=== PATIENT | male | born 1955 | race Two or more races ===

== ENCOUNTER 2023-02-24 10:45 | Inpatient (IN) | payer OTHER ==
[~2023-02-24] VITALS: Ht 152.4 cm; Wt 81.6 kg
[2023-03-01 19:11] LABS: HEMATOCRIT 37.4 % (39.0-48.0); HEMOGLOBIN 11.8 g/dL (13-16.00); MEAN CORPUSCULAR HGB CONC 31.6 g/dl (32.0-36.0); PLATELET COUNT 283 K/uL (150-450); RED BLOOD COUNT 5.37 M/uL (4.00-6.00)
[2023-03-01 19:14] LABS: MEAN CELL VOLUME 69.6 fL (80.0-100.00); RED CELL DISTRIBUTION WIDTH 34.2 % (11.5-14.5)
[2023-03-01 19:30] LABS: ALBUMIN 3.4 gm/dL (3.4-5.0); CALCIUM 8.9 mg/dL (8.5-10.1); CREATININE SERUM 1.11 mg/dL (0.70-1.30); GFR 65.88; MAGNESIUM 1.7 mg/dL (1.8-2.4); POTASSIUM 4.1 mEq/L (3.5-5.1)
[2023-03-02 07:47] LABS: HEMATOCRIT 37.7 % (39.0-48.0); HEMOGLOBIN 11.9 g/dL (13-16.00); MEAN CORPUSCULAR HEMOGLOBIN 22.1 pg (27.00-32.0); MEAN CORPUSCULAR HGB CONC 31.7 g/dl (32.0-36.0); PLATELET COUNT 310 K/uL (150-450); RED BLOOD COUNT 5.38 M/uL (4.00-6.00)
[2023-03-02 07:52] LABS: MEAN CELL VOLUME 69.9 fL (80.0-100.00); RED CELL DISTRIBUTION WIDTH 34.1 % (11.5-14.5)
[2023-03-02 08:14] LABS: ALBUMIN 3.3 gm/dL (3.4-5.0); CALCIUM 8.7 mg/dL (8.5-10.1); CREATININE SERUM 0.98 mg/dL (0.70-1.30); GFR 76.06; MAGNESIUM 1.9 mg/dL (1.8-2.4); PHOSPHOROUS 4.2 mg/dL (2.5-4.9); POTASSIUM 4.57 mEq/L (3.5-5.1)
[2023-03-02] MEDS ORDERED: VITAMIN D3125 MC2 (08:33)
[2023-03-02] MEDS ORDERED: OMEGA-3 ACID ETH1 GM (08:34)
[2023-03-02] MEDS ORDERED: IRBESARTAN-HCT1 EACH (08:34)
[2023-03-02] MEDS ORDERED: PANTOPRAZOLE SO20 MG (08:34)
[2023-03-03 07:48] LABS: ALBUMIN 2.8 gm/dL (3.4-5.0); CALCIUM 8.3 mg/dL (8.5-10.1); CREATININE SERUM 0.87 mg/dL (0.70-1.30); GFR 87.26; MAGNESIUM 1.8 mg/dL (1.8-2.4); PHOSPHOROUS 2.4 mg/dL (2.5-4.9); POTASSIUM 3.62 mEq/L (3.5-5.1)
[2023-03-03 08:01] LABS: HEMATOCRIT 34.5 % (39.0-48.0); HEMOGLOBIN 10.9 g/dL (13-16.00); MEAN CELL VOLUME 70.2 fL (80.0-100.00); MEAN CORPUSCULAR HEMOGLOBIN 22.2 pg (27.00-32.0); MEAN CORPUSCULAR HGB CONC 31.7 g/dl (32.0-36.0); PLATELET COUNT 270 K/uL (150-450); RED BLOOD COUNT 4.92 M/uL (4.00-6.00)
[2023-03-03 08:12] LABS: RED CELL DISTRIBUTION WIDTH 34.7 % (11.5-14.5)
== END 2023-03-05 12:10 | disposition home or self-care (01) | DRG 331 ==
LOC: O/R 03-01 07:55 → SURH 03-01 10:45
PROVIDERS: ADMIT Colon & Rectal Surgery; ATTEND Colon & Rectal Surgery
PROC: 07BB4ZZ Excision of Mesenteric Lymphatic, Percutaneous Endoscopic Approach (ICD-10-PCS; 2023-03-01)
PROC: 0WQF4ZZ Repair Abdominal Wall, Percutaneous Endoscopic Approach (ICD-10-PCS; 2023-03-01)
PROC: 0WQF4ZZ Repair Abdominal Wall, Percutaneous Endoscopic Approach (ICD-10-PCS; 2023-03-01)
PROC: 0DTF4ZZ Resection of Right Large Intestine, Percutaneous Endoscopic Approach (ICD-10-PCS; principal; 2023-03-01 12:00)
DX: C18.2 Malignant neoplasm of ascending colon (principal); R59.0 Localized enlarged lymph nodes; K43.9 Ventral hernia without obstruction or gangrene; I10 Essential (primary) hypertension